=== PATIENT | male | born 1965 | race Caucasian/White ===

== ENCOUNTER 2018-04-08 12:49 | Emergency (ER) | payer BC ==
[2018-04-08] MEDS ORDERED: AMOXICILLIN/POTASSIUM CLAV 875MG/125MG TABLET PO ONE (12:57)
[2018-04-08] MEDS ORDERED: Diph,Pert(Acell),Tet Vac 0.5 ML SYR IM ONE (12:57)
--- NOTE | 2018-04-08 13:10 | Emergency Department Record ---
History of Present Illness - General Chief Complaint: Animal Bite Stated Complaint: DOG BITE LT HAND Time Seen by Provider: 04/08/18 12:52 Source: Patient Mode of Arrival: Ambulatory Limitations: No limitations - History of Present Illness Initial Comments: 53 yo male presents after a dog bite to the left hand. He was talking with another individual who has a rotweiler. The dog bit him on the left hand. He denies pain. He has a puncture and scratches. The dog is UTD and healthy. The patient is unsure of his last tetanus. He has no pain, numbness, pain with ROM, or symptoms. MD Complaint: Animal bite -: Minutes(s) (45) Location - General: Other Left: Hand Animal: Dog Description: Immunizations UTD, Appeared well Mechanism: Bite, Scratch Pain Description: Other (No pain ) Context: Other Associated Symptoms: Bleeding Treatments Prior to Arrival: Other - Related Data Previous Rx's Medication Instructions Recorded Amoxicillin/Potassium Clav 1 tab PO BID #14 tab 04/08/18 [Augmentin 875-125 Tablet] Allergies Allergy/AdvReac Type Severity Reaction Status Date / Time No Known Allergies Allergy PT UNSURE Verified 04/08/18 12:53 OF REACTION Review of Systems Constitutional: Denies: Chills, Fever Eyes: Denies: Vision change ENT: Denies: Congestion, Throat pain Respiratory: Denies: Cough Cardiovascular: Denies: Chest pain Endocrine: Denies: Fatigue Gastrointestinal: Denies: Abdominal pain, Diarrhea, Nausea, Vomiting Genitourinary: Denies: Dysuria, Frequency, Hematuria Musculoskeletal: Denies: Arthralgia, Back pain, Joint swelling, Myalgia Skin: Reports: Other Neurological: Denies: Headache, Numbness, Tingling, Weakness Psychiatric: Denies: Anxiety Hematological/Lymphatic: Denies: Easy bleeding, Easy bruising Physical Exam - General General Appearance: Alert, Oriented x3, Cooperative, No acute distress Limitations: No limitations - Head Head exam: Atraumatic, Normal inspection - Eye Eye exam: Normal appearance - ENT ENT exam: Normal exam Ear exam: Normal external inspection Nasal Exam: Normal inspection - Neck Neck exam: Normal inspection - Cardiovascular Peripheral Pulses: 2+: Radial (L) - Extremities Extremities exam: Normal inspection, Full ROM, Normal capillary refill, Tenderness, Other (Full ROM, sensation intact, non tender, no bony tenderness) Image of Hand: 1 - puncture 2 - abrasion 3 - abrasions - Neurological Neurological exam: Alert, Normal gait, Oriented X3, Reflexes normal - Psychiatric Psychiatric exam: Normal affect, Normal mood - Skin Skin exam: Dry, Intact, Normal color, Warm. negative: Erythema Course - Reevaluation(s) Reevaluation #1: The single puncture sight was irrigated with ShurClens and then copious NS Augmentin provided Tetanus updated We discussed signs and symptoms of infection and reasons to return to the ED 04/08/18 13:10 Disposition Disposition: Discharge Clinical Impression: Dog bite of extremity Disposition: Home, Self-Care Condition: (1) Good Instructions: Animal Bite (ED) Additional Instructions: Clean twice daily Return if pain, pus, red Take the antibiotics twice daily for one week Prescriptions: Amoxicillin/Potassium Clav [Augmentin 875-125 Tablet] 1 tab PO BID #14 tab Forms: Patient Portal Access Time of Disposition: 13:12 Quality - Quality Measures Quality Measures: N/A - Blood Pressure Screening Does Patient Have Any of the Following: No Blood Pressure Classification: Hypertensive Reading Systolic Measurement: 144 Diastolic Measurement: 90 Screening for High Blood Pressure: < Pre-Hypertensive BP, F/U Documented > [ [id number]] Pre-Hypertensive Follow-up Interventions: Referral to alternative/primary care provider.
== END 2018-04-08 13:24 | disposition home or self-care (01) ==
LOC: ER 12:49
DX: S61.432A Puncture wound without foreign body of left hand, initial encounter (principal); W54.0XXA Bitten by dog, initial encounter
CPT/HCPCS: 90715; 96372; 99283